=== PATIENT | female | born 1990 | race Caucasian/White ===

== ENCOUNTER 2022-03-02 16:56 | Outpatient (CLI) | payer OTHER | END 2022-03-03 09:26 | disposition home or self-care (01) | LOC: OBS/DEL 16:56 | PROVIDERS: ATTEND Obstetrics & Gynecology | DX: O47.02 False labor before 37 completed weeks of gestation, second trimester (principal); Z3A.24 24 weeks gestation of pregnancy; Z91.010 Allergy to peanuts; Z91.013 Allergy to seafood ==